=== PATIENT | male | born 1945 | race Caucasian/White ===

== ENCOUNTER → 2018-10-16 | Outpatient (CLI) | payer OTHER ==
--- NOTE | 2018-10-16 14:03 | 2DMMODE ---
[facility] [place] [address] 2 D/M-MODE ECHOCARDIOGRAM Name: SAMANTA PEREZ Room #: REG CL [facility]#: [id number] Admission: 10/16/18 Attend Phys: Hipolito Cardenas MD Discharge: Date of : 49 Date of Service: 10/16/18 1403 Report #: [id number] THIS REPORT FOR: //name// APPROVED REPORT Study performed: 10/16/2018 12:56:58 EXAM: Comprehensive 2D, Doppler, and color-flow Echocardiogram Patient Location: Out-Patient Status: routine BSA: 1.68 HR: 67 bpm BP: 132/72 mmHg Rhythm: NSR Other Information Study Quality: Good/TD due to thin body habitus Indications CAD Hx: Afib, pacemaker, HTN, HLP, tobacco abuse. 2D Dimensions RVDd: 33.53 mm IVSd: 9.63 (7-11mm) LVOT Diam: 20.39 (18-24mm) LVDd: 36.20 mm PWd: 9.69 (7-11mm) Ascending Ao: 34.15 (22-36mm) LVDs: 22.74 (25-40mm) Aortic Root: 36.81 mm Volumes Left Atrial Volume (Systole) Single Plane 4CH: 25.59 mL Single Plane 2CH: 38.33 mL LA ESV Index: 31.00 mL/m2 Aortic Valve AoV Peak Nigel.: 0.90 m/s AO Peak Gr.: 3.21 mmHg LVOT Max P.06 mmHg LVOT Max V: 0.88 m/s DANILO Vmax: 3.19 cm2 AI Vmax: 4.47 m/s AI [place]: 2.88 m/s2 AI PHT: 450.82 ms [facility] [place] [address] 2 D/M-MODE ECHOCARDIOGRAM Name: SAMANTA PEREZ Room #: [facility]#: [id number] Admission: 10/16/18 Attend Phys: Hipolito Cardenas MD Discharge: Date of : 49 Date of Service: 10/16/18 1403 Report #: [id number] Mitral Valve E/A Ratio: 1.2 MV Decel. Time: 224.88 ms MV E Max Nigel.: 0.58 m/s MV A Nigel.: 0.48 m/s MV PHT: 65.21 ms IVRT: 73.82 ms Pulmonary Valve PV Peak Nigel.: 0.69 m/s PV Peak Gr.: 1.91 mmHg Pulmonary Vein P Vein S: 0.68 m/s P Vein A: 0.37 m/s P Vein D: 0.53 m/s P Vein A Dur.: 83.0 msec P Vein S/D Ratio: 1.28 Tricuspid Valve TR Peak Nigel.: 2.61 m/s RAP Estimate: 5.00 mmHg TR Peak Gr.: 27.23 mmHg PA Pressure: 32.00 mmHg Left Ventricle The left ventricle is normal size. There is normal LV segmental wall motion. There is normal left ventricular wall thickness. Left ventricular systolic function is normal. LVEF is 60-65%. Right Ventricle The right ventricle is normal size. The right ventricular systolic function is normal. Pacemaker lead is present in the right ventricle. Atria The left atrium size is normal. Right atrium is at the upper limits of normal. Aortic Valve Aortic valve is trileaflet; mildly thickened and calcified. Mild to moderate aortic regurgitation. There is no aortic valvular stenosis. Mitral Valve The mitral valve is normal in structure. Mild mitral regurgitation. No evidence of mitral valve stenosis. Tricuspid Valve The tricuspid valve is normal in structure. Mild to moderate tricuspid regurgitation. Estimated PAP is 30-35mmHg. [address] [address] 2 D/M-MODE ECHOCARDIOGRAM Name: SAMANTA PEREZ Room #: REG CL [facility]#: [id number] Admission: 10/16/18 Attend Phys: Hipolito Cardenas MD Discharge: Date of : 49 Date of Service: 10/16/18 1403 Report #: [id number] Pulmonic Valve The pulmonary valve is normal in structure. Mild pulmonic regurgitation. Great Vessels The aortic root is normal in size. The ascending aorta is normal in size. IVC is normal in size and collapses >50% with inspiration. Pericardium There is no pericardial effusion. <Conclusion> The left ventricle is normal size. There is normal left ventricular wall thickness. Left ventricular systolic function is normal. The right ventricle is normal size. Pacemaker lead is present in the right ventricle. The left atrium size is normal. Right atrium is at the upper limits of normal. Mild to moderate aortic regurgitation. Mild mitral regurgitation. Mild to moderate tricuspid regurgitation. Estimated PAP is 30-35mmHg. <ELECTRONICALLY SIGNED> By: Calvin Barone MD 10/16/18 1403 1403 1403 Calvin Barone MD /INF
== END ==
LOC: EDBD 12:53 → CV 12:53
DX: I08.8 Other rheumatic multiple valve diseases (principal); I25.10 Atherosclerotic heart disease of native coronary artery without angina pectoris; I48.91 Unspecified atrial fibrillation; I10 Essential (primary) hypertension; E78.5 Hyperlipidemia, unspecified; Z95.0 Presence of cardiac pacemaker